=== PATIENT | male | born 1960 | race Caucasian/White ===

== ENCOUNTER 2022-11-21 15:57 | Emergency (ER) | payer SELFPAY ==
[~2022-11-21] VITALS: Ht 185.4 cm; Wt 80.0 kg
[2022-11-21] MEDS ORDERED: ACETAMINOPHEN 325MG TABLET PO ONE (19:15)
[2022-11-21 20:30] VITALS: BP 133/83
[2022-11-21] MEDS ORDERED: IBUP-2030 MT (20:33)
[2022-11-21] MEDS ORDERED: CYCL5TAB MT (20:33)
[2022-11-21] MEDS ORDERED: HYDROCODONE/ACETAMINOPHEN 10/325MG TABLET PO ONE (20:45)
== END 2022-11-21 20:30 | disposition home or self-care (01) ==
LOC: ER 15:57
DX: S16.1XXA Strain of muscle, fascia and tendon at neck level, initial encounter (principal); S09.8XXA Other specified injuries of head, initial encounter; X58.XXXA Exposure to other specified factors, initial encounter; Y93.89 Activity, other specified; Y92.89 Other specified places as the place of occurrence of the external cause; Y99.8 Other external cause status
CPT/HCPCS: 73030; 99284